=== PATIENT | female | born 1985 | race Caucasian/White ===

== ENCOUNTER 2017-02-04 00:52 | Inpatient (IN) | payer OTHER ==
[~2017-02-04] VITALS: Ht 152.4 cm; Wt 113.0 kg
[2017-02-04] VITALS (7 sets, daily range): BP systolic 84–117; BP diastolic 44–74; PULSE 85–99; RESP 16–19
[~2017-02-04 00:52] MED LIST: BACTDS PO; IBUP-1542 PO; NITR-58 PO
[2017-02-04] MEDS ORDERED: LACTATED RINGER'S 1,000 ML IV SCH ×2 (01:20→01:28)
[2017-02-04] MEDS ORDERED: PRENAT PO (01:28)
[2017-02-04] MEDS ORDERED: LIDOCAINE 1% (MPF) 30 ML INJ INJ PRN (01:30)
[2017-02-04] MEDS ORDERED: BUTORPHANOL 2 MG INJ IV PRN (01:30)
[2017-02-04] MEDS ORDERED: OXYTOCIN 30 UNITS/LR 500 ML IV PRN ×2 (01:30→04:00)
[2017-02-04] MEDS ORDERED: MISOPROSTOL 200 MCG TAB PR PRN ×2 (01:30→04:00)
[2017-02-04] MEDS ORDERED: IBUPROFEN 600 MG TAB PO PRN (01:30)
[2017-02-04] MEDS ORDERED: METHYLERGONOVINE 0.2 MG INJ IM PRN ×2 (01:30→04:00)
[2017-02-04] MEDS ORDERED: OXYTOCIN 30 UNITS/LR 500 ML IV SCH ×2 (01:30)
[2017-02-04] MEDS ORDERED: AMPICILLIN 2 GM/NS (PMX) 100 ML IV ONE (01:30)
[2017-02-04] MEDS ORDERED: CARBOPROST 250 MCG INJ IM PRN ×2 (01:30→04:00)
--- NOTE | 2017-02-04 01:34 | TRIAGE ---
OB Triage Datetime Report Generated by CPN: 02/04/2017 01:34 Datetime: 02/04/2017 01:16 Membrane Status: Meconium Datetime: 02/04/2017 01:13 Stage of : OB Triage Time of Arrival: 02/04/2017 01:13 EGA: 39.3 Arrived By: Wheelchair Arrived From: Home Chief Complaint: C/O BLEEDING AND Movement: Present Contractions: Regular Contractions: q5 Rupture of Membranes: Denies Vaginal Bleeding: Small Vaginal Discharge: Denies Recent Sexual Intercouse: Denies Abdominal Trauma: Not Applicable Patient Complaints: Contractions Time Provider Notified: 02/04/2017 01:25 Provider Notified: Dr Underwood Initial Plan: CALL CEE MCKEON Maternal Assessment Level of Consciousness: Fully Conscious DTR's/Clonus: DTRs 2+; No Clonus Headache: Denies Blurred Vision: No Respiratory Effort: Unlabored; Regular Rhythm; Equal Expansion Breath Sounds, Left: Clear and Equal Breath Sounds, Right: Clear and Equal Nausea/Vomiting: Denies RUQ Epigastric Pain: Denies Lower Extremities Edema: Bilateral Lower Extremities Degree: 1+ Upper Extremities Edema: None Degree: None Facial Edema: None Temperature Route: Oral Fall Risk Assessment History of Falling: (0) No Secondary Diagnosis: (0) No Ambulatory Aid: (0) Bedrest/Nurse Assist IV Therapy: (0) No Gait: (0) Normal/Bedrest/Immobile Mental Status: (0) Oriented to Own Ability Fall Score: 0 Fall Risk Score Definition: No Risk: No action required Monitor Mode: External Monitor Mode: External US Pain Assessment Pain Scale: 10 Pain Presence: Intermittent Pain Type: Contraction Pain Location: Abdomen; Back Datetime: 02/04/2017 01:04 Vaginal Exam Dilatation (cms): 4.0 Effacement (%): 70 Station: -3 Exam By: Vinny Tank Membrane Status: Meconium Membranes Rupture Method: Spontaneous Amniotic Fluid Color: Heavy Meconium Amniotic Fluid Amount: Moderate Vaginal Bleeding: Scant Cervix, Consistency: Soft Cervix, Position: Midposition Presentation 'A': Cephalic Datetime: 09/22/2016 03:43 Stage of : OB Triage Datetime: 09/22/2016 03:34 Stage of : OB Triage Datetime: 09/22/2016 03:30 Stage of : OB Triage Labor Evaluation Frequency: NONE Monitor Mode: External Pain Assessment Pain Scale: 3 Pain Presence: Intermittent Pain Type: Stabbing; Pressure Pain Location: Head Pain Goal: 3 Pain Relief Measures: Pain Medication Given Datetime: 09/22/2016 02:30 Stage of : OB Triage Labor Evaluation Frequency: NONE Monitor Mode: External Pain Assessment Pain Scale: 3 Pain Presence: Intermittent Pain Type: Stabbing; Pressure Pain Location: Head Pain Goal: 3 Pain Relief Measures: Pain Medication Given Datetime: 09/22/2016 01:36 Stage of : OB Triage Labor Evaluation Frequency: NONE Monitor Mode: External Pain Assessment Pain Scale: 8 Pain Presence: Intermittent Pain Type: Stabbing; Pressure Pain Location: Head Pain Goal: 3 Pain Relief Measures: Pain Medication Given Datetime: 09/22/2016 00:54 Stage of : OB Triage Labor Evaluation Frequency: NONE Monitor Mode: External Pain Assessment Pain Scale: 8 Pain Presence: Intermittent Pain Type: Stabbing; Pressure Pain Location: Head Pain Goal: 3 Pain Relief Measures: Pain Medication Given Datetime: 09/22/2016 00:00 Stage of : OB Triage Labor Evaluation Frequency: NONE Monitor Mode: External Heart Rate FHR Baseline Rate: 146 Monitor Mode: Doppler Pain Assessment Pain Scale: 8 Pain Presence: Intermittent Pain Type: Pressure Pain Location: Head Pain Goal: 3 Pain Relief Measures: Comfort Measures Datetime: 09/21/2016 23:46 Stage of : OB Triage Labor Evaluation Frequency: NONE Monitor Mode: External Datetime: 09/21/2016 23:24 Stage of : OB Triage Datetime: 09/21/2016 23:15 Stage of : OB Triage Datetime: 09/21/2016 23:11 Stage of : OB Triage Time Provider Notified: 09/21/2016 23:11 Datetime: 09/21/2016 23:02 Stage of : OB Triage Maternal Assessment Level of Consciousness: Fully Conscious DTR's/Clonus: DTRs 2+; No Clonus Headache: Frontal Blurred Vision: No Respiratory Effort: Unlabored Breath Sounds, Left: Clear and Equal Breath Sounds, Right: Clear and Equal Nausea/Vomiting: Denies RUQ Epigastric Pain: Denies Lower Extremities Edema: None Upper Extremities Edema: None Facial Edema: None Temperature Route: Oral Fall Risk Assessment History of Falling: (0) No Labor Evaluation Frequency: NONE Monitor Mode: External Comments: FHR AUDIBLE FROM U/S DOPPLER Pain Assessment Pain Scale: 9 Pain Presence: Intermittent Pain Type: Pressure Pain Location: Head Pain Goal: 3 Pain Relief Measures: Comfort Measures Datetime: 09/21/2016 23:00 Assessment Type: Admission Assessment Maternal Assessment Level of Consciousness: Fully Conscious DTR's/Clonus: DTRs 2+; No Clonus Headache: Frontal Blurred Vision: No Respiratory Effort: Unlabored; Regular Rhythm; Equal Expansion Breath Sounds, Left: Clear and Equal Breath Sounds, Right: Clear and Equal Nausea/Vomiting: Denies RUQ Epigastric Pain: Denies Lower Extremities Edema: None Upper Extremities Edema: None Facial Edema: None Fall Risk Assessment History of Falling: (0) No Secondary Diagnosis: (0) No Ambulatory Aid: (0) Bedrest/Nurse Assist IV Therapy: (0) No Gait: (0) Normal/Bedrest/Immobile Mental Status: (0) Oriented to Own Ability Fall Score: 0 Fall Risk Score Definition: No Risk: No action required Datetime: 09/21/2016 22:52 Time of Arrival: 09/21/2016 22:14 EGA: 20.0 Arrived By: Ambulatory Arrived From: Home Chief Complaint: PT C/O ABDOMEN CRAMPING AND PRESSURE HEADACHE FOR ONE WEEK Contractions: Denies/Absent Rupture of Membranes: Denies Vaginal Bleeding: None Vaginal Discharge: Denies Recent Sexual Intercouse: Denies Abdominal Trauma: Not Applicable Patient Complaints: Cramping; Headache Additional Patient Complaints: NONE Time Provider Notified: 09/21/2016 23:11 Provider Notified: DR WHITE Initial Plan: TOCO MONITOR AND AUDIBLE FHR, LABORIST EVALUATE PT. Datetime: 09/21/2016 22:35 Time of Arrival: 09/21/2016 22:14 Arrived By: Wheelchair Arrived From: Home Chief Complaint: Cramping, ROJAS X 1wk Patient Complaints: Cramping; Headache Initial Plan: Doppler FHTs, [place] Datetime: 09/21/2016 22:28 Membrane Status: Intact
[2017-02-04] MEDS ORDERED: LACTATED RINGER'S 1,000 ML IV PRN (02:00)
[2017-02-04 02:10] LABS: ADD SCAN DIFF NO
[2017-02-04 02:16] LABS: BASOPHILS % 0.2 % (0.0-2.0); EOSINOPHILS # 0.1 10^3/ul (0.0-0.5); EOSINOPHILS % 2.1 % (0.0-7.0); HEMATOCRIT 32.6 % (37.0-47.0); HEMOGLOBIN 10.9 g/dl (12.0-16.0); LYMPHOCYTES # 1.5 10^3/ul (0.8-2.9); LYMPHOCYTES % 27.9 % (15.0-51.0); MEAN CORPUSCULAR HEMOGLOBIN 28.3 pg (29.0-33.0); MEAN CORPUSCULAR HGB CONC 33.4 g/dl (32.0-37.0); MEAN CORPUSCULAR VOLUME 84.7 fl (82.0-101.0); MEAN PLATELET VOLUME 10.6 fl (7.4-10.4); MONOCYTE # 0.4 10^3/ul (0.3-0.9); MONOCYTES % 7.1 % (0.0-11.0); NEUTROPHIL # 3.3 10^3/ul (1.6-7.5); NEUTROPHILS % 62.3 % (39.0-77.0); PLATELET COUNT 203 10^3/UL (140-415); RED BLOOD COUNT 3.85 10^6/ul (4.20-5.40); RED CELL DISTRIBUTION WIDTH 13.7 % (11.5-14.5); WHITE BLOOD COUNT 5.4 10^3/ul (4.8-10.8)
[2017-02-04 02:22] LABS: INR 0.91; PROTIME 12.3 Sec (12.2-14.2)
--- NOTE | 2017-02-04 02:38 | HP ---
Date/Time of Note Date/Time of Note DATE: 02/04/17 TIME: 02:30 OB - History Hx of Present Free Text/Dictation 31 Year-old with SIUP at 39 3/7 presents with a chief complaint of ucs. She has been receiving her care with Dr. Renee. She states good movement. She denies nausea, vomiting, shortness of breath, chest pain, and abdominal pain between contractions, headache, visual changes, vaginal bleeding or LOF. Estimated Due Date: Feb 21, 2017 : 4 Para: 3 Spontaneous : 0 Therapeutic : 3 Care: Good Care Ultrasounds: Normal mid trimester US Obstetrical Complications: None Medical Complications: None Past Family/Social History * Past Medical, Surgical, Family and Obstetric Histories reviewed from chart. Blood Type: Unknown Rubella: unknown RPR/VDRL: Unknown GBS Status: Negative HBsAG: Unknown (Not able to obtain her record, will get a copy at am) OB Admission Exam Vital Signs Vital Signs Vital Signs Date Time Temp Pulse Resp B/P Pulse Ox O2 Delivery O2 Flow Rate FiO2 02/04/17 01:26 98.0 90 18 117/74 Room Air Physical Exam HEENT: WNL Heart: Rhythm Normal Abdomen: WNL Extremities: Normal Reflexes: Normal Cervical Dilatation: 4cm Effacement: 75% Station: -3 Membranes: Ruptured Amniotic Fluid: Thick Meconium Heart Rate: 140's Accelerations: Accelerations Present Decelerations: No Decelerations Varibility: Moderate Contractions on Admission: 6-10 Minutes Apart Intensity: Moderate Last 72 hours Lab Results CBC & BMP 02/04/17 01:35 OB Assessment/Plan Other plan: 31 Year-old with SIUP at 39 3/7 in labor, her membrane ruptured during exam which was thick meconium - FHR: No sign of metabolic acidosis- Category I - Continious EFM, toco - CBC, blood type and screen - Analgesia options with R/B/A discussed in detail with patient - Epidural per patient request - Please see the orders - O+/Rubella: Immune/GBS negative Admission, procedures, expectations, risks and possible complications have been discussed in detail with the patient. Risk of vaginal delivery including but not limited to bleeding, infection, cervical laceration, placental retention, injury to fetus, blood transfusion, blood transfusion related infection, risk of anesthesia, adhesion, cervical laceration, episiotomy/laceration, possible delivery with risk of bleeding, infection, injury to other organs ( bowel, bladder, ureter, vessels, nerves), injury to fetus, blood transfusion, blood transfusion related infection, risk of anesthesia, scar and hernia formation, needs for future , removal of uterus or any other indicated surgery discussed with the patient. She expressed understanding and repeats the risks. All of her questions were answered; all appropriate consents will be signed. PHYSICIAN'S VERIFICATION OF INFORMED CONSENT: The patient was counseled regarding the procedure, its indications, risks, potential complications and alternatives and any questions were answered. Consent was obtained. PLANNED PROCEDURE/TREATMENT: Vaginal delivery with possible vacuum/forceps delivery episiotomy, repair of laceration possible delivery PHYSICIAN'S VERIFICATION OF INFORMED CONSENT FOR BLOOD TRANSFUSION: There is a reasonable possibility that blood transfusion will be necessary as a result of the patient's procedure. I have discussed the following with the patient/patient's legal eligibility services representative: An explanation of the benefits and risks of the transfusion of blood or blood products and the possible alternatives. Al questions have been answered to the patient's/patients legal representatives satisfaction. INFORMED CONSENT: The patient has been informed of: - The nature of the proposed care, treatment, services, medic- Potential benefits, risks or side effects, including potential problems related to recuperation. - The likelihood of achieving care treatment and service goals. - Reasonable alternatives to the proposed care, treatment and service. - The relevant risks, benefits and side effects related to alternatives, including the possible results of not receiving care, treatment and services. - When indicated, any limitations on the confidentiality of information learned from or about the patient. - If appropriate, the risks, benefits and alternatives of the drugs to be used for sedation/analgesia including moderate sedation. - If appropriate, patient has been provided information on the risks, benefits and alternatives to the transfusion of blood and/or blood products. JENNIFER RAZA Feb 04, 2017 02:37
--- NOTE | 2017-02-04 03:57 | LDN ---
Date/Time of Note Date/Time of Note DATE: 02/04/17 TIME: 03:54 Delivery Summary 31 y/o delivered a male over intact perineum. : 8 at one anf 9 at 5 min, Weight: 8 lbs 3 oz, time of delivery at 03: 02 Placenta Delivered: Spontaneously Meconium: Thick Perineum intact?: Yes Sponge & Needle done & correct: Yes All needle counts correct: Yes Any foreign bodies felt in the: No Problems: Delivery Information Sex Infant Sex: male Apgars 1 Minute: 8 5 Minute: 9 10 Minute: 10 Suctioning Nose & mouth suctioned at paul: Yes Umbilical Cord Umbilical cord with: 3 Vessels Cord presentations: nuchal cord Nuchal cord present X: 1 Cord Blood was obtained: Yes Copies To: CC: ROMINA ABARCA MD, SEDI Feb 04, 2017 03:56
[2017-02-04] MEDS ORDERED: BENZOCAINE 20% 56 ML SPRAY TOP PRN (04:00)
[2017-02-04] MEDS ORDERED: ACETAMINOPHEN 325 MG TAB PO PRN (04:00)
[2017-02-04] MEDS ORDERED: ONDANSETRON 4 MG INJ IV PRN (04:00)
[2017-02-04] MEDS ORDERED: SENNA/DOCUSATE NA (8.6MG/50MG) TAB PO PRN (04:00)
[2017-02-04] MEDS ORDERED: WITCH HAZEL/GLYCERIN PAD PR PRN (04:00)
[2017-02-04] MEDS ORDERED: ZOLPIDEM 5 MG TAB PO PRN (04:00)
[2017-02-04] MEDS ORDERED: LANOLIN 7 GM TUBE TOP PRN (04:00)
[2017-02-04] MEDS ORDERED: OXYCODONE/ASPIRIN (4.88/325) TAB PO PRN (04:00)
[2017-02-04] MEDS ORDERED: DIBUCAINE 1% 30 GM OINT PR PRN (04:00)
[2017-02-04] MEDS ORDERED: DIPHENHYDRAMINE 50 MG INJ IV PRN (04:00)
[2017-02-04] MEDS: DEXTROSE 5%-LR 1,000 ML IV SCH ×3 (05:26→19:57)
[2017-02-04] MEDS ORDERED: AMPICILLIN 1 GM/NS (PMX) 50 ML IV SCH (05:30)
[2017-02-04] MEDS: IBUPROFEN 600 MG TAB PO SCH ×4 (05:58→23:33)
[2017-02-04] MEDS: LACTATED RINGER'S 1,000 ML IV* SCH ×3 (06:55→19:57)
[2017-02-05] VITALS (16 sets, daily range): BP systolic 100–136; BP diastolic 52–81; PULSE 70–99; RESP 14–20
[2017-02-05] MEDS: DEXTROSE 5%-LR 1,000 ML IV SCH ×2 (01:00→11:57)
[2017-02-05] MEDS: LACTATED RINGER'S 1,000 ML IV* SCH ×3 (03:30→17:35)
[2017-02-05] MEDS: IBUPROFEN 600 MG TAB PO SCH ×4 (05:44→23:35)
[2017-02-05 08:05] LABS: ADD SCAN DIFF NO
[2017-02-05 08:42] LABS: BASOPHILS % 0.3 % (0.0-2.0); EOSINOPHILS # 0.1 10^3/ul (0.0-0.5); EOSINOPHILS % 1.5 % (0.0-7.0); HEMATOCRIT 30.7 % (37.0-47.0); LYMPHOCYTES # 1.9 10^3/ul (0.8-2.9); LYMPHOCYTES % 28.5 % (15.0-51.0); MEAN CORPUSCULAR HEMOGLOBIN 28.1 pg (29.0-33.0); MEAN CORPUSCULAR HGB CONC 32.6 g/dl (32.0-37.0); MEAN CORPUSCULAR VOLUME 86.2 fl (82.0-101.0); MONOCYTE # 0.4 10^3/ul (0.3-0.9); MONOCYTES % 5.6 % (0.0-11.0); NEUTROPHIL # 4.2 10^3/ul (1.6-7.5); NEUTROPHILS % 63.8 % (39.0-77.0); PLATELET COUNT 201 10^3/UL (140-415); RED BLOOD COUNT 3.56 10^6/ul (4.20-5.40); RED CELL DISTRIBUTION WIDTH 13.8 % (11.5-14.5); WHITE BLOOD COUNT 6.6 10^3/ul (4.8-10.8)
[2017-02-05] MEDS ORDERED: BUPIVACAINE 0.25%/EPI (SDV) 30 ML INJ ONE (12:18)
[2017-02-05] MEDS ORDERED: PROPOFOL 20 ML ONE (13:34)
[2017-02-05] MEDS ORDERED: ROCURONIUM 50 MG INJ ONE (13:34)
[2017-02-05] MEDS ORDERED: FENTAnyl 50 MCG/ML VIAL ONE (13:35)
[2017-02-05] MEDS ORDERED: MIDAZOLAM 1 MG/ML 2 ML INJ ONE (13:35)
[2017-02-05] MEDS ORDERED: DEXAMETHASONE 4 MG/ML 1 ML INJ ONE (14:09)
[2017-02-05] MEDS ORDERED: KETOROLAC 30 MG INJ ONE (14:09)
[2017-02-05] MEDS ORDERED: METOCLOPRAMIDE 10 MG INJ ONE (14:09)
[2017-02-05] MEDS ORDERED: ONDANSETRON 4 MG INJ ONE (14:09)
--- NOTE | 2017-02-05 14:10 | PN ---
Date/Time of Note Date/Time of Note DATE: 02/05/17 TIME: 14:08 Assessment/Plan VTE Prophylaxis VTE Prophylaxis Intervention: ambulation Lines/Catheters IV C[facility] (from [facility] Peripheral IV Assessment/Plan Assessment/Plan S/P V/D desires sterilization will proceed with BTL Subjective 24 Hr Interval Summary Free Text/Dictation desires BTL S/P vaginal delivery Constitutional: improved, no complaints Eyes: no complaints ENT: no complaints Respiratory: no complaints Cardiovascular: no complaints Gastrointestinal: no complaints Genitourinary: no complaints Musculoskeletal: no complaints Skin: no complaints Neurologic: no complaints Endocrine: no complaints Lymphatic: no complaints Psychological: nl mood/affect, no complaints Immunologic: no complaints Exam/Review of Systems Vital Signs Vitals Vital Signs Date Time Temp Pulse Resp B/P Pulse Ox O2 Delivery O2 Flow Rate FiO2 02/05/17 12:00 98.5 94 19 129/76 02/05/17 07:30 Room Air Intake and Output 02/04/17 02/04/17 02/05/17 15:00 23:00 07:00 Intake Total 375 ml Output Total 800 ml Balance -800 ml 375 ml Exam Constitutional: alert, oriented, well developed Psych: nl mood/affect, no complaints Head: atraumatic, normocephalic Eyes: EOMI, PERRL, nl conjunctiva, nl lids, nl sclera ENMT: nl external ears & nose, nl lips & teeth, nl nasal mucosa & septum Neck: non-tender, supple Respiratory: clear to auscultation, normal air movement Cardiovascular: nl pulses, regular rate and rhythm Gastrointestinal: nl liver, spleen, non-tender, soft Genitourinary - Female: uterus (at U) Musculoskeletal: nl extremities to inspection, nl gait and stance Extremities: normal pulses Neurological: [employer] SUPER[employer] II-XII intact, nl mental status, nl speech, nl strength Skin: nl turgor, No rash or lesions Lymph: nl lymph nodes Results Result Diagram: 02/05/17 0736 Results 24 hrs Laboratory Tests Test 02/05/17 07:36 Basophils # 0.0 Basophils % 0.3 Eosinophils # 0.1 Eosinophils % 1.5 Hematocrit 30.7 L Hemoglobin 10.0 L Lymphocytes # 1.9 Lymphocytes % 28.5 Mean Corpuscular Hemoglobin 28.1 L Mean Corpuscular Hemoglobin Concent 32.6 Mean Corpuscular Volume 86.2 Mean Platelet Volume 10.0 Monocytes # 0.4 Monocytes % 5.6 Neutrophils # 4.2 Neutrophils % 63.8 Nucleated Red Blood Cells # 0.0 Nucleated Red Blood Cells % 0.0 Platelet Count 201 Red Blood Count 3.56 L Red Cell Distribution Width 13.8 White Blood Count 6.6 # Medications Medications Current Medications Lactated Ringer's (Lr) 1,000 ml @ 125 mls/hr Q8H IV* Last administered on 03:30; Admin Dose 125 MLS/HR; Start 02/04/17 at 03:57 Ibuprofen (Motrin) 600 mg Q6 PO Last administered on 02/04/17 23:33; Admin Dose 600 MG; Start 02/04/17 at 06:00 Acetaminophen (Tylenol Tab) 650 mg Q4H PRN PO PAIN LEVEL 1-5 Last administered on 02/04/17 04:10; Admin Dose 650 MG; Start 02/04/17 at 04:00 Oxycodone/Aspirin (Percodan) 1 tab Q3H PRN PO PAIN LEVEL 1-5; Start 02/04/17 at 04:00 Ondansetron HCl (Zofran Inj) 4 mg Q6H PRN IV NAUSEA AND/OR VOMITING; Start 02/04 at 04:00 Diphenhydramine HCl (Benadryl) 25 mg Q6H PRN IV PRURITUS; Start 02/04/17 at 04: 00 Zolpidem Tartrate (Ambien) 5 mg QHS PRN PO INSOMNIA; Start 02/04/17 at 04:00 Senna/Docusate Sodium (Senokot-S) 1 tab BID PRN PO CONSTIPATION; Start 02/04/17 at 04:00 Measles/Mumps/ Rubella Vaccine Live (Mmr Ii Vaccine) 0.5 ml ONCE ONCE SC* ; Start 02/06/17 at 09:00; Stop 02/06/17 at 09:01 Diphtheria/ Tetanus/Acell Pertussis 0.5 ml 0.5 ml ONCE ONCE IM* ; Start 02/06/17 at 09:00; Stop 02/06/17 at 09:01 Oxytocin/Lactated Ringer's 500 ml @ 0 mls/hr ONCE PRN IV For Hemorrhage Management; Start 02/04/17 at 04:00 Methylergonovine Maleate (Methergine) 0.2 mg ONCE PRN IM VAGINAL BLEEDING; Start 02/04/17 at 04:00 Carboprost Tromethamine (Hemabate) 250 mcg ONCE PRN IM VAGINAL BLEEDING; Start 02/04/17 at 04:00 Misoprostol 1000 mcg 1,000 mcg ONCE PRN IN VAGINAL BLEEDING; Start 02/04/17 at 04 :00 Dextrose/Lactated Ringer's (D5-Lr) 1,000 ml @ 125 mls/hr Q8H IV ; Start at 03:57 ROMINA ABARCA MD Feb 05, 2017 14:10
[2017-02-05] MEDS ORDERED: CEFAZOLIN 1 GM INJ ONE (14:22)
[2017-02-05] MEDS ORDERED: PHENYLephrine (100 MCG/ML) 5ML SYG ONE (14:24)
[2017-02-05] MEDS ORDERED: BUPIVACAINE 0.25%/EPI (SDV) 30 ML INJ INJ ONE (14:28)
[2017-02-05] MEDS ORDERED: GLYCOPYRROLATE 0.4 MG INJ ONE (14:47)
[2017-02-05] MEDS ORDERED: NEOSTIGMINE 3 MG/3 ML SYRINGE ONE (14:47)
[2017-02-05] MEDS ORDERED: LACTATED RINGER'S 1,000 ML IV SCH (14:49)
[2017-02-05] MEDS ORDERED: KETOROLAC 60 MG INJ IM STA (14:49)
--- NOTE | 2017-02-05 14:55 | OPR ---
Operative Report Planned Procedure Procedure date Feb 05, 2017 Procedure(s) bilateral tubal ligation Performed by: ROMINA ABARCA MD Anesthesiologist: WILLIS HERNANDEZ MD Pre-procedure diagnosis S/P vaginal delivery desires sterilization Anesthesia Type: general Procedure Description The patient was placed on the OR table in supine position. Spinal anesthesia was placed. A Jara catheter was then inserted into urinary bladder under aseptic condition. After induction of spinal anesthesia, with the patient in supine position, abdominal area was prepped and draped for usual tubal ligation procedure. Under satisfactory anesthesia, a small incision 2 to 3 cm in length was placed just below belly button, incision extended laterally to 1.5 cm lateral to the linea nigra on either side. Incision was carried down with sharp and blunt dissection until fascia was reached. Anterior recti muscle fascia was incised in the midportion. Incision extended laterally to the border of the skin incision. Peritoneum was visualized. Avoiding bowel or bladder, incision was made in peritoneum, which was extended laterally to the border of the skin incision. Two Army-Rose retractors were placed inside the incision. Incision was brought up to the level of the left fallopian tube. Fallopian tube was raised in the mid portion. A clamp was placed below the fimbriated end, most of the fallopian tube from the mesosalpinx traversing the isthmus portion of the tube. Another clamp was placed just below the first and 0 Vicryl tie was used to tie the mesosalpinx and the stump of the fallopian tube on the proximal side. Another stitch of the same kind was used for adequate hemostasis. Hemostasis appeared to be secure on ligated sites of the fallopian tube. Tube was incised above the stitched area. Same procedure was done on the fallopian tube on opposite side. Hemostasis appeared to be secure on ligated sites of either fallopian tubes. Ovaries were within normal limits. Uterus appears to be size. Announcing needle, lap, sponge and instrument count to be correct, abdomen was closed in layers as follows: Peritoneum with running stitches of #1 Vicryl, fascia edges of #1 Vicryl, subcutaneous tissue with running stitches of #1 Vicryl, and skin was reapproximated using subcuticular stitches of 4-0 Monocryl on a PS2 needle and also Dermabond was placed on the incision. The patient tolerated the procedure very well and was transferred to postanesthesia recovery room in stable and good condition. ESTIMATED BLOOD LOSS: Less than 5 mL. Post-Procedure Post-procedure diagnosis S/P BTL Findings: NL R and L fallopian tubes Specimen removed: Yes Specimen description segments of R and L fallopian tubes Complications: None Pt Condition post procedure: stable Disposition: PACU Physician Certification I, the undersigned physician, hereby certify that I have discussed the procedure described in this consent form with this patient (or the patient's legal public service representative), including: * The risk and benefits of the procedure; * Any adverse reactions that may reasonably be expected to occur; * Any alternative efficacious methods of treatment which may be medically viable ; * The potential problems that may occur during recuperation; * Potential for blood transfusion and associated risks/benefits; and * Any research or economic interest I may have regarding this treatment. I further certify that the patient/legally responsible person was encouraged to ask question and that all questions were answered. ROMINA ABARCA MD Feb 05, 2017 14:55
[2017-02-05] MEDS ORDERED: MEPERIDINE 25 MG INJ IV PRN (15:00)
[2017-02-05] MEDS ORDERED: KETOROLAC 30 MG INJ IM ONE (15:00)
[2017-02-05] MEDS ORDERED: morphine (1 MG/ML) 10ML SYRINGE IV PRN ×3 (15:00)
[2017-02-05] MEDS ORDERED: ONDANSETRON 4 MG INJ IV PRN (15:00)
[2017-02-05] MEDS ORDERED: DIPHENHYDRAMINE 50 MG INJ IV PRN (15:00)
[2017-02-05] MEDS ORDERED: HYDROmorphONE (0.2 MG/ML) 10ML SYG IV PRN ×3 (15:00)
[2017-02-05] MEDS ORDERED: BUTORPHANOL 2 MG INJ IM ONE (15:00)
[2017-02-05] MEDS ORDERED: METOCLOPRAMIDE 10 MG INJ IV PRN (15:00)
--- NOTE | 2017-02-05 17:59 | DS ---
Date/Time of Note Date/Time of Note home next day DATE: 02/05/17 TIME: 17:58 Obstetrical Discharge Record Final Diagnosis Final Diagnosis: Term delivered Other Final Diagnosis S/P vaginal delivery and BTL Vaginal Delivery Obstetrical Delivery: Spontaneous, Bilateral Tubal Ligation Condition on Discharge Physical Assessment Last Vitals: see nurses notes Voiding: Yes Bowel Movement: Yes Breast: Soft, non-tender, Filling Fundus: Firm Abdomen and Incision: soft BS + incision: covered Episiotomy: NA Calf Tenderness: No Patient Condition: Good ROMINA ABARCA MD Feb 05, 2017 17:59
[2017-02-06 04:20] VITALS: BP 109/65; PULSE 92; RESP 18
[2017-02-06] MEDS: IBUPROFEN 600 MG TAB PO SCH ×2 (05:22→11:23)
[2017-02-06 08:20] VITALS: BP 98/56; PULSE 100; RESP 16
[2017-02-06] MEDS ORDERED: MEASLES,MUMPS,RUBELLA VACCINE INJ SC* ONE (09:00)
[2017-02-06] MEDS ORDERED: DIPHTH/TET/ACEL PERTUSS (ADULT) 0.5 ML VIAL IM* ONE (09:00)
--- NOTE | 2017-02-06 14:14 | PD.PPDC ---
[employer] Discharge Instruction Provider Information Physician Information 31 y/o female had V/S and BTL Diagnosis Final Diagnosis: S/P V/S and BTL Condition Patient Condition: Good Diet Diet: Resume Regular Diet Activity/Restrictions Activity: Normal Activity May Shower Restrictions: No Lifting Nothing in the Vagina Return to Work or School: Mar 24, 2017 Follow-up Follow-up with Physician: 4, Week/Weeks (in clinic) Return to clinic for PAINTER MAINTENANCE Instructions: Fever greater than 101 Chills OB Instructions: Breast Tenderness Depression Surgical Instructions: Incisional Drainage Incisional Redness ROMINA ABARCA MD Feb 06, 2017 14:14
[2017-02-06] MEDS ORDERED: IBUP-1542 PO (14:15)
[2017-02-06] MEDS ORDERED: ACET325T33 PO (14:15)
== END 2017-02-06 16:10 | disposition home or self-care (01) | DRG 767 ==
LOC: L-D 00:52 → OBT 00:52 → L-D 01:20 → OBT 01:20 → PP1 05:06
PROVIDERS: ADMIT Obstetrics & Gynecology; ATTEND Obstetrics & Gynecology
PROC: 0UL70ZZ Occlusion of Bilateral Fallopian Tubes, Open Approach (ICD-10-PCS; 2017-02-05)
PROC: 10E0XZZ Delivery of Products of Conception, External Approach (ICD-10-PCS; principal; 2017-02-05 13:30)
DX: O69.81X0 Labor and delivery complicated by cord around neck, without compression, not applicable or unspecified (principal); Z30.2 Encounter for sterilization; Z3A.39 39 weeks gestation of pregnancy; Z37.0 Single live birth
CPT/HCPCS: 85025; 85610; 85730; 86592; 86900; 86901; 88302; 90715; G0463; J0690; J1100; J1885; J2175; J2250; J2370; J2405; J2590; J2710; J2765; J3010; J7120; J7121